=== PATIENT | male | born 1990 | race Caucasian/White ===

== ENCOUNTER 2020-10-24 22:47 | Emergency (ER) | payer OTHER, SELFPAY ==
[2020-10-24 22:51] VITALS: BP 104/69; PULSE 102; RESP 18; TEMP 36.6; O2SAT 97
--- NOTE | 2020-10-24 22:58 | ED_ITS ---
HPI - Wound/Laceration General Chief Complaint: Wound/Laceration Stated Complaint: FALL LACERATION LEFT SIDE OF FACE Time Seen by Provider: 10/24/20 22:57 Source: patient and family (significant other) Mode of arrival: Ambulatory Limitations: no limitations History of Present Illness HPI narrative: This is a 30-year-old male who states that he slipped and fell in the water grass while walking to the car with his significant other. She did witness his fall. Fell onto his left elbow which is somewhat painful but he is able to move it fully. He also hit the left side of his head on a rock has 2 small lacerations on his forehead. Patient did not have loss of consciousness. He has some pain over the left upper cheek, he denies any vision changes. Denies any nausea or vomiting. Denies any neck, back or pain elsewhere. Patient injury occurred shortly prior to arrival. Denies any other medical issues. No prior surgeries. He does not smoke, he drinks intermittently he had about 4 drinks this evening. He does not use any recreational drugs. Patient does not believe his tetanus is up-to-date. Related Data Allergies Allergy/AdvReac Type Severity Reaction Status Date / Time No Known Drug Allergies Allergy Verified 10/24/20 23:44 Review of Systems Review of Systems ROS Unobtainable: All systems reviewed & are unremarkable except as noted in HPI and below Patient History Social History Smoking Status: Never smoker Smoking Status: Never smoker alcohol intake frequency: a few times a month Substance Use Type: does not use Exam Narrative Exam Narrative: GEN: Patient appears in mild distress. HEAD: Has a has 0.5 cm laceration above his right brow on the lateral 3rd he also has a laceration over the right upper maxilla that is approximately 1 cm and gapped, no raccoon/Banks sign. NECK: Nontender, painless range of motion, trachea midline EYES: PERRLA, EOMI ENT: External inspection normal other than stated above, trachea is midline, TM's are normal no hemotypanum, Nares are clear, no septal hematoma, no dental or oral injury, airway is normal and with normal occlusion, No bony tenderness RESP: Chest is nontender and has symmetric movement, no ecchymosis, breath sounds are normal no crackles, wheezes or rales CVS: Heart sounds are normal, no murmur noted, No JVD. ABG/GI: Nontender, soft, normal bowel sounds, no distention, no organomegaly. NEURO: Oriented AOx3, neuro is grossly intact, sensation and motor is normal all 4 extremities moving, cranial nerves II through XII are intact, GCS is 15. Patient ambulated into department. PSYCH: Normal mood and affect SKIN: Intact, warm and dry, no crepitus and without decubitus BACK: No CVA tenderness, no vertebral tenderness, no step-off's, no crepitus EXT: Atraumatic, hips are nontender, no pedal edema, normal color and temperature, normal range of motion of extremities with normal tendon exam, 2+ pulses in all four extremities Initial Vital Signs Initial Vital Signs: Vital Signs Temperature 97.9 F 10/24/20 22:51 Pulse Rate 102 H 10/24/20 22:51 Respiratory Rate 18 10/24/20 22:51 Blood Pressure 104/69 10/24/20 22:51 Pulse Oximetry 97 10/24/20 22:51 Procedures Laceration Repair Laceration 1: Site: face Side (If applicable): left Size (cm): 1 Description: linear Depth: simple, single layer Local Anesthetic: lidocaine 1% Amount of anesthesia used (mL): 1.5 Pre-repair: wound explored, irrigated extensively and deep structures intact Skin layer closed with: vicryl Size (cm): 5-0 Number of sutures: 5 Technique: simple, interrupted Laceration 2: Site: face Side (If applicable): left (eyebrow) Size (cm): 0.5 Description: linear Depth: simple, single layer Local Anesthetic: lidocaine 1% Amount of anesthesia used (mL): 1 Pre-repair: wound explored, irrigated extensively and deep structures intact Skin layer closed with: vicryl Size (cm): 5-0 Number of sutures: 3 Technique: simple, interrupted Course Orders Ordered: Discontinued Medications Diphtheria/Tetanus/Acell Pertussis (Tet,Diph,Pertuss(Acell),Vac/Pf 0.5 Ml Syringe) 0.5 ml IM .ONCE ONE Stop: 10/24/20 23:12 Last Admin: 10/24/20 23:20 Dose: 0.5 ml Documented by: RAFA Lidocaine/Sodium Bicarbonate (Lido 1%/Sod Bicarb 8.4% (10ml) 10 Ml Syringe) 10 ml INJ NOW ONE Stop: 10/24/20 23:12 Last Admin: 10/24/20 23:24 Dose: 10 ml Documented by: RAFA Vital Signs Vital signs: Vital Signs - 8 hr 10/24/20 22:51 Temperature 97.9 F Pulse Rate 102 H Respiratory Rate 18 Blood Pressure 104/69 Pulse Oximetry 97 Discharge Plan Departure Patient Disposition: Home Clinical Impression: Face lacerations, Head injury Instructions: DI for Concussion, DI for Laceration Repair -- Simple Activity Restrictions/Additional Instructions: You have absorbable sutures do not have to have these removed but if they are still present at 7 days they should be removed at that time if the wound has healed. You may take tylenol and/or ibuprofen as needed for pain. Wound Care: Keep wound(s) clean and dry. Wash twice daily with soap and water only. Do not use over the counter products (alcohol or peroxide)on the wounds unless instructed by a physician. If wound condition worsens (increased/expanding redness, developing fluid blisters, or worsening pain), either contact your doctor for an urgent re- assessment , or return to the Emergency Department. Return to the Emergency Department for any new or worsening symptoms. Return if fever greater than 100.4 Fahrenheit, increased swelling, increasing pain or worsening symptoms such as increased discharge or spreading redness, altered mental status, severe headaches, confusion persistent vomiting, new numbness, tingling or weakness difficulty with speech or other new or concerning symptoms.
[2020-10-24] MEDS: TET,DIPH,PERTUSS(ACELL),VAC/PF 0.5 ML SYRINGE IM (23:20)
[2020-10-24] MEDS: LIDO 1%/SOD BICARB 8.4% (10ML) 10 ML SYRINGE INJ (23:24)
== END 2020-10-25 00:12 | disposition home or self-care (01) ==
PROVIDERS: Emergency Provider Emergency Medicine
DX: S01.81XA Laceration without foreign body of other part of head, initial encounter (principal); S06.0X0A Concussion without loss of consciousness, initial encounter; S01.112A Laceration without foreign body of left eyelid and periocular area, initial encounter; S51.012A Laceration without foreign body of left elbow, initial encounter; W01.198A Fall on same level from slipping, tripping and stumbling with subsequent striking against other object, initial encounter
CPT/HCPCS: 12001; 90471; 99283; 99284; 90715